=== PATIENT | male | born 1940 | race Caucasian/White ===

== ENCOUNTER 2025-01-26 08:43 | Emergency (ER) | payer OTHER ==
[2025-01-26 09:04] VITALS: BMI 24.0
[2025-01-26 09:21] LABS: ABSOLUTE IMMATURE GRANULOCYTES 0.02 x10^3/uL (0.0-0.031); BASOPHILS # 0.02 x10^3/uL (0.01-0.08); EOSINOPHIL % 1.8 % (0.8-7.0); EOSINOPHILS # 0.15 x10^3/uL (0.04-0.54); HEMOGLOBIN 15.9 g/dL (13.7-17.5); MCHC 34.6 g/dl (32.3-36.5); MEAN CELL VOLUME 93.9 fl (79.0-92.2); MEAN PLT VOLUME 9.4 fl (9.4-12.4); MONOCYTE % 9.7 % (5.3-12.2); PLATELET COUNT 206 x10^3/uL (163-337); RDW 12.3 % (12.6-16.6)
[2025-01-26 09:48] LABS: ANION GAP 7 mmol/L (4-13); CALCIUM 8.9 mg/dl (8.5-10.1); CHLORIDE 102 mmol/L (98-107); CO2 29 mmol/L (21-32); CREATININE 0.9 mg/dl (0.6-1.3); GLUCOSE,RANDOM 148 mg/dl (74-106); POTASSIUM 3.7 mmol/L (3.5-5.1); SODIUM 138 mmol/L (136-145)
[2025-01-26] MEDS ORDERED: ACETAMINOPHEN 325 MG TABLET (FP) ONE (11:07)
[2025-01-26] MEDS: ACETAMINOPHEN 325 MG TABLET (FP) PO ONE (11:10)
[2025-01-26 13:37] LABS: HCV DIAGNOSTIC IN-HOUSE W/RFLX NON-REACTIVE (NONREACTIVE); HIV INTERPRETATION NEGATIVE (NEGATIVE)
[2025-01-26] MEDS ORDERED: LIDOCAINE 5% TOPICAL PATCH ONE (13:47)
[2025-01-26] MEDS: LIDOCAINE 5% TOPICAL PATCH TP ONE (13:54)
[2025-01-26 13:55] VITALS: BP 130/80; PULSE 79; RESP 16; TEMP 98.2
[2025-01-26] MEDS ORDERED: LIDOCAINE PATCH REMOVAL MC ONE (22:00)
== END 2025-01-26 13:59 | disposition home or self-care (01) ==
LOC: FER 08:43
DX: R07.89 Other chest pain (principal)
CPT/HCPCS: 36415; 71275-TC; 80048; 84484; 85025; 86803; 87389; 93005; 99285-25; Q9967